=== PATIENT | male | born 1940 | race Caucasian/White ===

== ENCOUNTER 2016-06-15 06:54 | Emergency (ER) | payer OTHER ==
[~2016-06-15] VITALS: Ht 180.3 cm; Wt 81.8 kg
[2016-06-15 08:05] LABS: HEMATOCRIT 36.2 % (38.0-50.0); MCH 29.1 PG (29.0-34.0); MCHC 34.5 G/DL (30.0-36.0); MCV 84.4 FL (86-99); MEAN PLAT.VOLUME 8.2 uM^3 (9.0-12.4); PLATELET COUNT 382 K/uL (156-360); RBC DIS.WIDTH-CV 13.3 % (11.8-14.6); RBC DIS.WIDTH-SD 40.4 % (39-53); RED BLOOD COUNT 4.29 M/uL (4.00-5.50); WHITE BLOOD COUNT 9.3 K/uL (4.1-10.2)
[2016-06-15 08:40] LABS: ALKALINE PHOSPHATASE 64 IU/L (3-129); ANION GAP 11 MEQ/L (2-14); C-REACTIVE PROTEIN 57.2 MG/L (0-10); CHLORIDE 98 MEQ/L (99-109); GFR ESTIMATE (CALCULATED) > 59 mL/min/; GLUCOSE 81 mg/dL (70-99); SAMPLE HEMOLYSIS CHECK 0; SAMPLE ICTERIC CHECK 0; SAMPLE LIPEMIA CHECK 0; SODIUM 132 MEQ/L (136-147); TOTAL BILIRUBIN 0.3 MG/DL (0.0-1.0); UREA NITROGEN (BUN) 4 mg/dL (9-23)
[2016-06-15] MEDS ORDERED: TESSALON PERLE100 MG PO (11:44)
[2016-06-15] MEDS ORDERED: PROVENTIL HFA6.7 GM IH (11:44)
[2016-06-15] MEDS ORDERED: ROBITUSSIN NIG118 ML PO (11:44)
[2016-06-15 12:00] VITALS: BP 118/76
== END 2016-06-15 12:00 | disposition home or self-care (01) ==
LOC: EME 06:54
PROVIDERS: Nurse Practitioner Family
DX: R04.2 Hemoptysis (principal); J85.0 Gangrene and necrosis of lung; R91.8 Other nonspecific abnormal finding of lung field; F17.200 Nicotine dependence, unspecified, uncomplicated
CPT/HCPCS: 71020; 71260; 80053; 85027; 86140; 87116; 87206; 99281; 99284; J7030

== ENCOUNTER → 2016-07-03 | Outpatient (CLI) | payer OTHER ==
[~2016-07-03] VITALS: Ht 180.3 cm; Wt 81.4 kg
[~2016-07-03] MED LIST: ANORO ELLIPTA1 EACH IH; ASPIR 8181 M1 PO; CENTRUM SILVER1 EAC5 PO; FISH OIL 1,0001 EAC7 PO; LEVOFLOXACIN750 MG PO; PREDNISOLONE SO10 MG PO; PROAIR RESPICL90 MCG IH; PROVENTIL HFA6.7 GM IH; ROBITUSSIN NIG118 ML PO; TESSALON PERLE100 MG PO; VITAMIN C1000 MG PO
[2016-07-03 09:48] LABS: INTER. NORMALIZED RATIO 1.2; PROTHROMBIN TIME 11.8 (9.2-11.2); PTT 34.8 (25-32)
== END | disposition home or self-care (01) ==
LOC: OPR 07-02 10:00 → EDSTATUS 09:00
PROVIDERS: Internal Medicine Pulmonary Disease
PROC: 0BBG3ZX Excision of Left Upper Lung Lobe, Percutaneous Approach, Diagnostic (ICD-10-PCS; principal; 2016-07-03)
DX: C34.12 Malignant neoplasm of upper lobe, left bronchus or lung (principal); F17.200 Nicotine dependence, unspecified, uncomplicated; R04.2 Hemoptysis; J44.9 Chronic obstructive pulmonary disease, unspecified
CPT/HCPCS: 71010; 77012; 85610; 85730; 88305; 88341 TC; 88342 TC; J3010

== ENCOUNTER 2016-10-04 11:54 | Emergency (ER) | payer OTHER ==
[~2016-10-04] VITALS: Ht 180.3 cm; Wt 76.7 kg
[~2016-10-04 11:54] MED LIST changes: +AMOX TR-K CLV1 EAC4 PO; +BENZONATATE100 MG PO; +LORTAB 10 MG-3473 ML PO
[2016-10-04] MEDS ORDERED: LEVOFLOXACIN750 MG PO (13:29)
[2016-10-04] MEDS ORDERED: PREDNISONE10 MG PO (13:30)
[2016-10-04] MEDS ORDERED: AMOX TR-K CLV1 EAC4 PO (13:30)
[2016-10-04] MEDS ORDERED: ONDANSETRON ODT8 MG PO (13:31)
[2016-10-04] MEDS ORDERED: ACETAMINOPHN-T1 EACH PO (13:31)
[2016-10-04 14:57] LABS: EOSINOPHIL (%) 2.2 % (0-5); EOSINOPHIL COUNT 0.1 K/uL (0-0.3); HEMATOCRIT 34.8 % (38.0-50.0); IMMATURE GRANULOCYTE (%) 0.3 % (0.0-0.7); INSTRUMENT ABS NEUTROPHIL CT 2.4 K/uL; LYMPHOCYTE COUNT 0.3 K/uL (1.0-2.8); MCH 28.7 PG (29.0-34.0); MCHC 33.6 G/DL (30.0-36.0); MCV 85.3 FL (86-99); MEAN PLAT.VOLUME 9.1 uM^3 (9.0-12.4); MONOCYTE (%) 12.3 % (3-12); MONOCYTE COUNT 0.4 K/uL (0-0.8); NEUTROPHIL (%) 74.8 % (45-76); NEUTROPHIL COUNT 2.4 K/uL (1.8-6.4); RBC DIS.WIDTH-CV 19.9 % (11.8-14.6); RBC DIS.WIDTH-SD 59.8 % (39-53); RED BLOOD COUNT 4.08 M/uL (4.00-5.50); WHITE BLOOD COUNT 3.3 K/uL (4.1-10.2)
[2016-10-04 14:58] LABS: PLATELET COUNT 152 K/uL (156-360)
[2016-10-04 15:11] LABS: CHLORIDE 101 mEq/L (99-109); POTASSIUM 4.1 mEq/L (3.7-5.4); SODIUM 134 mEq/L (136-147)
[2016-10-04 15:14] LABS: GLUCOSE 80 mg/dL (70-99)
[2016-10-04 15:15] LABS: ANION GAP 9 MEQ/L (2-14)
[2016-10-04 15:16] LABS: TOTAL BILIRUBIN 0.5 mg/dL (0.0-1.0)
[2016-10-04 15:17] LABS: ALKALINE PHOSPHATASE 60 IU/L (3-129); GFR ESTIMATE (CALCULATED) > 59 mL/min/
[2016-10-04 15:18] LABS: UREA NITROGEN (BUN) 7 mg/dL (9-23)
[2016-10-04 18:14] LABS: ADD MIUA? NO; BILIRUBIN NEGATIVE; BLOOD NEGATIVE; COLOR STRAW ((YELLOW)); GLUCOSE (STRIP) NEGATIVE; KETONES NEGATIVE; LEUKOCYTES NEGATIVE; NITRITE NEGATIVE; PROTEIN (STRIP) NEGATIVE; SPECIFIC GRAVITY 1.005 (1.000-1.030); UROBILINOGEN 0.2 MG/DL (0.2-1.0)
[2016-10-04 18:36] VITALS: BP 137/90
== END 2016-10-04 18:37 | disposition home or self-care (01) ==
LOC: EME 11:54
PROVIDERS: Emergency Medicine
DX: K40.20 Bilateral inguinal hernia, without obstruction or gangrene, not specified as recurrent (principal); M54.16 Radiculopathy, lumbar region; C34.90 Malignant neoplasm of unspecified part of unspecified bronchus or lung; M79.1 Myalgia; F17.200 Nicotine dependence, unspecified, uncomplicated
CPT/HCPCS: 70450; 72131; 74176; 80053; 81003; 83605; 85025; 99281; 99284; J2270; J7030

== ENCOUNTER 2016-11-10 01:41 | Emergency (ER) | payer OTHER ==
[~2016-11-10] VITALS: Ht 180.3 cm; Wt 81.2 kg
[~2016-11-10 01:41] MED LIST changes: +ACETAMINOPHN-T1 EACH PO; +ONDANSETRON ODT8 MG PO; +PREDNISONE10 MG PO
[2016-11-10 02:02] LABS: HEMATOCRIT 30.6 % (38.0-50.0); MCH 30.9 PG (29.0-34.0); MEAN PLAT.VOLUME 8.3 uM^3 (9.0-12.4); PLATELET COUNT 178 K/uL (156-360); RBC DIS.WIDTH-CV 23.6 % (11.8-14.6); RBC DIS.WIDTH-SD 78.6 % (39-53); RED BLOOD COUNT 3.27 M/uL (4.00-5.50); WHITE BLOOD COUNT 4.6 K/uL (4.1-10.2)
[2016-11-10 02:05] LABS: MCV 93.6 FL (86-99)
[2016-11-10 02:12] LABS: CHLORIDE 101 mEq/L (99-109); POTASSIUM 3.8 mEq/L (3.7-5.4); SODIUM 134 mEq/L (136-147)
[2016-11-10 02:14] LABS: GLUCOSE 87 mg/dL (70-99)
[2016-11-10 02:16] LABS: ANION GAP 13 MEQ/L (2-14)
[2016-11-10 02:17] LABS: SERUM ETHYL ALCOHOL 16 mg/dL
[2016-11-10 02:18] LABS: GFR ESTIMATE (CALCULATED) > 59 mL/min/
[2016-11-10 02:19] LABS: UREA NITROGEN (BUN) 6 mg/dL (9-23)
[2016-11-10 02:51] LABS: INTER. NORMALIZED RATIO 1.2; PROTHROMBIN TIME 13.4 SEC (10.2-12.9)
[2016-11-10 02:54] LABS: PTT 42.8 SEC (25-37)
[2016-11-10 03:16] LABS: TROP-I INTERPRETATION NEGATIVE; TROPONIN-I < 0.01 ng/mL (0.0-0.30)
[2016-11-10 07:10] VITALS: BP 122/72
== END 2016-11-10 07:14 | disposition short-term general hospital (02) ==
LOC: EME → EDBD 01:41 → EME 07:14
PROVIDERS: Emergency Medicine
DX: R04.2 Hemoptysis (principal); R09.02 Hypoxemia; J69.0 Pneumonitis due to inhalation of food and vomit; C34.90 Malignant neoplasm of unspecified part of unspecified bronchus or lung; F17.200 Nicotine dependence, unspecified, uncomplicated; J43.9 Emphysema, unspecified; K44.9 Diaphragmatic hernia without obstruction or gangrene; K57.30 Diverticulosis of large intestine without perforation or abscess without bleeding; Z92.3 Personal history of irradiation
CPT/HCPCS: 71020; 71275; 80048; 84484; 85027; 85379; 85610; 85730; 86900; 86901; 93005; 99281; 99285; G0480; J2543; J7030

== ENCOUNTER 2017-07-30 10:14 | Day surgery (SDC) | payer OTHER ==
[~2017-07-30] VITALS: Ht 182.9 cm; Wt 77.1 kg
[~2017-07-30 10:14] MED LIST changes: +DURAGESIC75 MCG TD; +LORCET HD 10-31 EACH PO; +NEURONTIN300 MG PO; +ONCE DAILY1 EACH PO; +STOOL SOFTENER100 MG PO
== END 2017-07-30 12:06 | disposition home or self-care (01) ==
LOC: PAIN 10:14 → SDC 10:45 → PAIN 12:06
DX: R07.89 Other chest pain (principal); M54.6 Pain in thoracic spine; Z85.118 Personal history of other malignant neoplasm of bronchus and lung
CPT/HCPCS: J1100; J1885; J2250; S0020

== ENCOUNTER 2017-09-19 14:48 | Emergency (ER) | payer OTHER ==
[~2017-09-19] VITALS: Ht 180.3 cm; Wt 102.1 kg
[2017-09-19 15:47] LABS: HEMATOCRIT 39.3 % (38.0-50.0); HEMOGLOBIN 13.6 G/DL (12.5-16.6); MCH 30.5 PG (29.0-34.0); MCHC 34.6 G/DL (30.0-36.0); MCV 88.1 FL (86-99); PLATELET COUNT 371 K/uL (156-360); RBC DIS.WIDTH-CV 13.1 % (11.8-14.6); RBC DIS.WIDTH-SD 41.8 % (39-53); RED BLOOD COUNT 4.46 M/uL (4.00-5.50); WHITE BLOOD COUNT 18.9 K/uL (4.1-10.2)
[2017-09-19 15:53] LABS: INTER. NORMALIZED RATIO 1.3
[2017-09-19 15:55] LABS: CHLORIDE 89 mEq/L (99-109); SODIUM 130 mEq/L (136-147)
[2017-09-19 15:58] LABS: GLUCOSE 105 mg/dL (70-99); TOTAL PROTEIN 7.4 g/dL (6.4-8.3)
[2017-09-19 16:00] LABS: TOTAL BILIRUBIN 0.5 mg/dL (0.0-1.0)
[2017-09-19 16:01] LABS: ALKALINE PHOSPHATASE 98 IU/L (3-129); CREATININE 0.8 mg/dL (0.6-1.3); GFR ESTIMATE (CALCULATED) > 59 mL/min/ (58.99-99999)
[2017-09-19 16:02] LABS: UREA NITROGEN (BUN) 15 mg/dL (9-23)
[2017-09-19 16:03] LABS: AST (GOT) 15 IU/L (2-34)
[2017-09-19 16:04] LABS: ALT (GPT) 17 IU/L (3-49)
[2017-09-19] MEDS ORDERED: NARCAN4 MG NS (18:21)
[2017-09-19] MEDS ORDERED: DILAUDID2 MG PO (18:22)
[2017-09-19 18:30] VITALS: BP 127/68
== END 2017-09-19 18:30 | disposition home or self-care (01) ==
LOC: EME 14:48
PROVIDERS: Emergency Medicine
DX: M54.6 Pain in thoracic spine (principal); R06.02 Shortness of breath; Z85.118 Personal history of other malignant neoplasm of bronchus and lung; F17.200 Nicotine dependence, unspecified, uncomplicated; Z92.21 Personal history of antineoplastic chemotherapy; Z92.3 Personal history of irradiation
CPT/HCPCS: 71275; 80053; 85027; 85610; 85730; 99281; 99285; J1170; J3010; J7030; J7050

== ENCOUNTER 2017-10-29 11:22 | Inpatient (IN) | payer OTHER ==
[~2017-10-29] VITALS: Ht 177.8 cm; Wt 72.5 kg
[~2017-10-29 11:22] MED LIST changes: +DILAUDID2 MG PO; +DURAGESIC100 MCG TD; +NARCAN4 MG NS; +PHILLIPS' LAXA100 MG PO; +ROXICODONE30 MG PO; +SENNA-S LAXATI1 EACH PO
[2017-10-29 12:23] LABS: HEMATOCRIT 30.3 % (38.0-50.0); HEMOGLOBIN 10.6 G/DL (12.5-16.6); RBC DIS.WIDTH-CV 13.1 % (11.8-14.6); RBC DIS.WIDTH-SD 39.7 % (39-53); RED BLOOD COUNT 3.65 M/uL (4.00-5.50); WHITE BLOOD COUNT 19.2 K/uL (4.1-10.2)
[2017-10-29 12:24] LABS: PLATELET COUNT 577 K/uL (156-360)
[2017-10-29 12:33] LABS: ALBUMIN 3.3 g/dL (3.2-4.8); CHLORIDE 93 mEq/L (99-109); POTASSIUM 4.1 mEq/L (3.7-5.4); SODIUM 131 mEq/L (136-147)
[2017-10-29 12:35] LABS: GLUCOSE 112 mg/dL (70-99)
[2017-10-29 12:36] LABS: TOTAL PROTEIN 6.8 g/dL (6.4-8.3)
[2017-10-29 12:37] LABS: TOTAL BILIRUBIN 0.7 mg/dL (0.0-1.0)
[2017-10-29 12:39] LABS: ALKALINE PHOSPHATASE 149 IU/L (3-129); CREATININE 0.7 mg/dL (0.6-1.3); GFR ESTIMATE (CALCULATED) > 59 mL/min/ (58.99-99999)
[2017-10-29 12:40] LABS: UREA NITROGEN (BUN) 11 mg/dL (9-23)
[2017-10-29 12:41] LABS: AST (GOT) 38 IU/L (2-34)
[2017-10-29 12:42] LABS: ALT (GPT) 45 IU/L (3-49)
[2017-10-29 12:43] LABS: TROP-I INTERPRETATION NEGATIVE; TROPONIN-I < 0.01 ng/mL (0.0-0.30)
[2017-10-29 16:11] LABS: APPEARANCE CLEAR ((CLEAR)); BILIRUBIN NEGATIVE; BLOOD NEGATIVE; COLOR YELLOW ((YELLOW)); GLUCOSE (STRIP) NEGATIVE; KETONES 5; LEUKOCYTES NEGATIVE; NITRITE NEGATIVE; PROTEIN (STRIP) NEGATIVE; SPECIFIC GRAVITY 1.013 (1.000-1.030); UCUL ADDED? NO
[2017-10-29 22:05] VITALS: BP 157/90
[2017-10-30 04:00] VITALS: BP 133/65
[2017-10-30 07:33] VITALS: BP 166/94
[2017-10-30] MEDS ORDERED: DURAGESIC100 MCG TD (10:46)
[2017-10-30 11:44] VITALS: BP 139/77
[2017-10-30 15:34] VITALS: BP 153/78
[2017-10-30 19:11] VITALS: BP 146/82
[2017-10-30 22:31] VITALS: BP 153/79
[2017-10-31 08:30] VITALS: BP 138/68
[2017-10-31 11:23] VITALS: BP 164/79
[2017-10-31 15:37] VITALS: BP 149/75
[2017-10-31 18:17] VITALS: BP 165/76
[2017-10-31 19:05] VITALS: BP 143/80
[2017-11-01] VITALS (7 sets, daily range): BP systolic 125–151; BP diastolic 68–78
[2017-11-01 05:33] LABS: HEMATOCRIT 29.4 % (38.0-50.0); HEMOGLOBIN 9.9 G/DL (12.5-16.6); MCH 27.7 PG (29.0-34.0); MCHC 33.7 G/DL (30.0-36.0); MCV 82.4 FL (86-99); PLATELET COUNT 554 K/uL (156-360); RBC DIS.WIDTH-CV 13.2 % (11.8-14.6); RBC DIS.WIDTH-SD 39.7 % (39-53); RED BLOOD COUNT 3.57 M/uL (4.00-5.50); WHITE BLOOD COUNT 21.2 K/uL (4.1-10.2)
[2017-11-01 06:01] LABS: CHLORIDE 98 MEQ/L (99-109); CREATININE 0.4 MG/DL (0.6-1.3); GFR ESTIMATE (CALCULATED) > 59 mL/min/ (58.99-99999); GLUCOSE 93 mg/dL (70-99); MAGNESIUM 1.5 mg/dl (1.3-2.7); SODIUM 134 MEQ/L (136-147); UREA NITROGEN (BUN) 8 mg/dL (9-23)
[2017-11-01 06:17] LABS: POTASSIUM 2.8 MEQ/L (3.7-5.4)
[2017-11-01 08:10] LABS: FOLIC ACID (FOLATE) 16.6 NG/ML (5.0-22.0)
[2017-11-02 05:13] VITALS: BP 146/76
[2017-11-02 07:12] LABS: HEMATOCRIT 28.6 % (38.0-50.0); HEMOGLOBIN 9.8 G/DL (12.5-16.6); MCH 28.2 PG (29.0-34.0); MCHC 34.3 G/DL (30.0-36.0); MCV 82.2 FL (86-99); PLATELET COUNT 537 K/uL (156-360); RBC DIS.WIDTH-CV 13.7 % (11.8-14.6); RBC DIS.WIDTH-SD 40.4 % (39-53); RED BLOOD COUNT 3.48 M/uL (4.00-5.50); WHITE BLOOD COUNT 24.2 K/uL (4.1-10.2)
[2017-11-02 07:21] LABS: CHLORIDE 98 MEQ/L (99-109); CREATININE 0.5 MG/DL (0.6-1.3); GFR ESTIMATE (CALCULATED) > 59 mL/min/ (58.99-99999); GLUCOSE 91 mg/dL (70-99); MAGNESIUM 1.5 mg/dl (1.3-2.7); POTASSIUM 3.3 MEQ/L (3.7-5.4); SODIUM 134 MEQ/L (136-147); UREA NITROGEN (BUN) 8 mg/dL (9-23)
[2017-11-02 07:25] VITALS: BP 133/71
[2017-11-02 17:01] VITALS: BP 163/82
[2017-11-02 19:45] VITALS: BP 124/71
[2017-11-03 00:15] VITALS: BP 110/58
[2017-11-03 04:19] VITALS: BP 139/80
[2017-11-03 07:30] VITALS: BP 136/75
[2017-11-03 11:13] VITALS: BP 132/92
[2017-11-03 15:58] VITALS: BP 134/80
[2017-11-03 19:00] VITALS: BP 136/77
[2017-11-04 04:38] VITALS: BP 144/69
[2017-11-04 07:00] VITALS: BP 147/74
[2017-11-04 09:47] LABS: HEMATOCRIT 30.5 % (38.0-50.0); HEMOGLOBIN 10.3 G/DL (12.5-16.6); MCHC 33.8 G/DL (30.0-36.0); MCV 82.9 FL (86-99); PLATELET COUNT 545 K/uL (156-360); RBC DIS.WIDTH-SD 41.4 % (39-53); RED BLOOD COUNT 3.68 M/uL (4.00-5.50); WHITE BLOOD COUNT 24.5 K/uL (4.1-10.2)
[2017-11-04 10:11] LABS: CHLORIDE 94 MEQ/L (99-109); CREATININE 0.5 MG/DL (0.6-1.3); GFR ESTIMATE (CALCULATED) > 59 mL/min/ (58.99-99999); GLUCOSE 91 mg/dL (70-99); POTASSIUM 3.7 MEQ/L (3.7-5.4); SODIUM 133 MEQ/L (136-147); UREA NITROGEN (BUN) 6 mg/dL (9-23)
[2017-11-04 11:20] VITALS: BP 132/68
[2017-11-04] MEDS ORDERED: MEGESTROL400 MG/10 PO (14:19)
[2017-11-04] MEDS ORDERED: Salonpas 4% Patch TD (14:19)
[2017-11-04 20:11] VITALS: BP 132/76
[2017-11-04 23:55] VITALS: BP 131/70
[2017-11-05 07:08] VITALS: BP 136/76
[2017-11-05] MEDS ORDERED: HYDROMORPHONE HC2 MG PO (09:58)
== END 2017-11-05 12:38 | disposition home health service (06) | DRG 948 ==
LOC: EME 11:22 → EDOF 20:31 → 4SOUTH 20:31 → EDOF 20:31 → ENRESERV 20:33 → 4SOUTH 21:50 → ENRESERV 10-31 14:31 → 4SOUTH 10-31 14:36 → ENRESERV 11-04 10:57 → CANRESERV 11-04 15:56 → 4SOUTH 11-05 12:38
PROVIDERS: Emergency Medicine; Internal Medicine; Physician Assistant
DX: G89.3 Neoplasm related pain (acute) (chronic) (principal); D89.9 Disorder involving the immune mechanism, unspecified; J44.9 Chronic obstructive pulmonary disease, unspecified; C79.51 Secondary malignant neoplasm of bone; E87.1 Hypo-osmolality and hyponatremia; E83.52 Hypercalcemia; E86.0 Dehydration; F17.210 Nicotine dependence, cigarettes, uncomplicated; C34.92 Malignant neoplasm of unspecified part of left bronchus or lung; Z66 Do not resuscitate; Z92.21 Personal history of antineoplastic chemotherapy; Z92.3 Personal history of irradiation; R62.7 Adult failure to thrive; Z51.5 Encounter for palliative care; T40.601A Poisoning by unspecified narcotics, accidental (unintentional), initial encounter; R63.4 Abnormal weight loss; E87.6 Hypokalemia; D47.3 Essential (hemorrhagic) thrombocythemia; D64.9 Anemia, unspecified; Z68.22 Body mass index [BMI] 22.0-22.9, adult
CPT/HCPCS: 70553; 71045; 80048; 80053; 81003; 82607; 82746; 83605; 83735; 84484; 85027; 94640; 94799; 99281; 99285; G0378; J0696; J1170; J1644; J2060; J2270; J2405; J3480; J7030; J7040; J7050

== ENCOUNTER 2017-11-11 12:38 | Inpatient (IN) | payer OTHER ==
[~2017-11-11] VITALS: Ht 188 cm; Wt 86.0 kg
[~2017-11-11 12:38] MED LIST changes: +HYDROMORPHONE HC2 MG PO; +MEGESTROL400 MG/10 PO; +Salonpas 4% Patch TD
[2017-11-11 13:39] LABS: BASOPHIL (%) 0.2 % (0-1); BASOPHIL COUNT 0.1 K/uL (0-0.1); EOSINOPHIL (%) 0.3 % (0-5); EOSINOPHIL COUNT 0.1 K/uL (0-0.3); HEMATOCRIT 26.8 % (38.0-50.0); HEMOGLOBIN 9.3 G/DL (12.5-16.6); LYMPHOCYTE (%) 4.4 % (15-42); LYMPHOCYTE COUNT 1.3 K/uL (1.0-2.8); MCH 28.3 PG (29.0-34.0); MCHC 34.7 G/DL (30.0-36.0); MCV 81.5 FL (86-99); MONOCYTE (%) 6.8 % (3-12); NEUTROPHIL (%) 87.3 % (45-76); NEUTROPHIL COUNT 25.3 K/uL (1.8-6.4); PLATELET COUNT 540 K/uL (156-360); RBC DIS.WIDTH-CV 14.4 % (11.8-14.6); RED BLOOD COUNT 3.29 M/uL (4.00-5.50)
[2017-11-11 13:50] LABS: CHLORIDE 99 mEq/L (99-109); POTASSIUM 2.9 mEq/L (3.7-5.4); SODIUM 141 mEq/L (136-147)
[2017-11-11 13:52] LABS: GLUCOSE 96 mg/dL (70-99); INTER. NORMALIZED RATIO 1.9
[2017-11-11 13:55] LABS: PTT 25.1 SEC (25-37)
[2017-11-11 13:56] LABS: CREATININE 0.8 mg/dL (0.6-1.3); GFR ESTIMATE (CALCULATED) > 59 mL/min/ (58.99-99999)
[2017-11-11 13:57] LABS: UREA NITROGEN (BUN) 15 mg/dL (9-23)
[2017-11-11 14:14] LABS: TROP-I INTERPRETATION NEGATIVE; TROPONIN-I 0.01 ng/mL (0.0-0.30)
[2017-11-11 15:21] LABS: APPEARANCE SL.HAZY ((CLEAR)); BILIRUBIN NEGATIVE; BLOOD NEGATIVE; COLOR YELLOW ((YELLOW)); GLUCOSE (STRIP) NEGATIVE; KETONES 5; LEUKOCYTES NEGATIVE; NITRITE NEGATIVE; PROTEIN (STRIP) 30; UROBILINOGEN 0.2 MG/DL (0.2-1.0)
[2017-11-11 15:38] LABS: BACTERIA RARE /HPF; CALCIUM OXALATE CRYSTALS 1+ /HPF; EPITHELIAL CELLS RARE /HPF; MUCUS TRACE /LPF; RED BLOOD CELLS 0-5 /HPF (0-5); UCUL ADDED? NO; WHITE BLOOD CELLS 0-5 /HPF (0-5)
[2017-11-11 15:41] LABS: AMPHETAMINE NEGATIVE (500 ng/mL); BARBITURATES NEGATIVE (200 ng/mL); BENZODIAZEPINES NEGATIVE (150 ng/mL); BUPRENORPHINE NEGATIVE (10 ng/mL); COCAINE NEGATIVE (150 ng/mL); METHADONE NEGATIVE (200 ng/mL); METHAMPHETAMINE NEGATIVE (500 ng/mL); OPIATES (MORPHINE) NEGATIVE (100 ng/mL); OXYCODONE NEGATIVE (100 ng/mL); PHENCYCLIDINE NEGATIVE (25 ng/mL); PROPOXYPHENE NEGATIVE (300 ng/mL); THC CANNABINOIDS NEGATIVE (50 ng/mL); TRICYCLIC ANTIDEPRESSANTS NEGATIVE (300 ng/mL)
[2017-11-11] MEDS ORDERED: COLACE100 MG PO (16:35)
[2017-11-11] MEDS ORDERED: MEGACE 40 MG40 MG/ML PO (16:35)
[2017-11-11] MEDS ORDERED: NICODERM CQ1 EAC1 TD (16:36)
[2017-11-11] MEDS ORDERED: TYLENOL EXTRA500 MG PO (16:37)
[2017-11-11 18:23] LABS: COMMENTS - BLOOD GASES A+C+; DEVICE ROOM AIR; FI02 21 %; O2 FLOW 0 L/MIN; PCO2 37 mm Hg (35-45); PO2 67 mm Hg (80-100); SITE LEFT RADIAL; TOTAL RESP RATE 18 resp/min; pH 7.52 (7.35-7.45)
[2017-11-11 18:24] LABS: BASE EXCESS 6.9 mEq/L (-3 to +3); BICARBONATE 30.2 mEq/L (22-26); CARBOXY HGB 2.7 % (0-5); METHEMOGLOBIN 1.4 % (0-1.5)
[2017-11-11 18:29] LABS: ALBUMIN 3.4 g/dL (3.2-4.8)
[2017-11-11 18:34] LABS: TOTAL BILIRUBIN 0.7 mg/dL (0.0-1.0)
[2017-11-11 18:35] LABS: ALKALINE PHOSPHATASE 114 IU/L (3-129); SERUM ETHYL ALCOHOL < 10 mg/dL
[2017-11-11 18:37] LABS: AST (GOT) 25 IU/L (2-34); DIRECT BILIRUBIN 0.4 mg/dL (0.0-0.3)
[2017-11-11 18:38] LABS: ALT (GPT) 20 IU/L (3-49)
[2017-11-11 19:33] LABS: THYROTROPIN (TSH) 0.77 MIU/L (0.4-5.5)
[2017-11-11 20:30] VITALS: BP 152/94
[2017-11-11 22:30] VITALS: BP 148/94
[2017-11-12 02:50] VITALS: BP 142/75
[2017-11-12 05:33] LABS: BASOPHIL (%) 0.2 % (0-1); BASOPHIL COUNT 0.1 K/uL (0-0.1); EOSINOPHIL (%) 0.3 % (0-5); EOSINOPHIL COUNT 0.1 K/uL (0-0.3); HEMATOCRIT 25.1 % (38.0-50.0); HEMOGLOBIN 8.4 G/DL (12.5-16.6); IMMATURE GRANULOCYTE (%) 1.2 % (0.0-0.7); LYMPHOCYTE (%) 3.9 % (15-42); MCH 27.6 PG (29.0-34.0); MCHC 33.5 G/DL (30.0-36.0); MCV 82.6 FL (86-99); MONOCYTE (%) 7.1 % (3-12); MONOCYTE COUNT 1.9 K/uL (0-0.8); NEUTROPHIL (%) 87.3 % (45-76); NEUTROPHIL COUNT 23.3 K/uL (1.8-6.4); PLATELET COUNT 502 K/uL (156-360); RBC DIS.WIDTH-CV 14.6 % (11.8-14.6); RBC DIS.WIDTH-SD 42.5 % (39-53); RED BLOOD COUNT 3.04 M/uL (4.00-5.50); WHITE BLOOD COUNT 26.7 K/uL (4.1-10.2)
[2017-11-12 06:49] LABS: ALBUMIN 2.8 G/DL (3.2-4.8); ALKALINE PHOSPHATASE 91 IU/L (3-129); ALT (GPT) 16 IU/L (3-49); AST (GOT) 19 IU/L (2-34); CHLORIDE 104 MEQ/L (99-109); CREATININE 0.7 MG/DL (0.6-1.3); GFR ESTIMATE (CALCULATED) > 59 mL/min/ (58.99-99999); GLUCOSE 93 mg/dL (70-99); POTASSIUM 3.1 MEQ/L (3.7-5.4); SODIUM 142 MEQ/L (136-147); TOTAL BILIRUBIN 0.6 MG/DL (0.0-1.0); TOTAL PROTEIN 6.1 G/DL (6.4-8.3); UREA NITROGEN (BUN) 14 mg/dL (9-23)
[2017-11-12 08:30] VITALS: BP 144/99
[2017-11-12 12:00] VITALS: BP 160/83
[2017-11-12 13:03] LABS: ALBUMIN 2.7 G/DL (3.2-4.8); ALKALINE PHOSPHATASE 103 IU/L (3-129); ALT (GPT) 14 IU/L (3-49); AST (GOT) 17 IU/L (2-34); CHLORIDE 105 MEQ/L (99-109); CREATININE 0.6 MG/DL (0.6-1.3); GFR ESTIMATE (CALCULATED) > 59 mL/min/ (58.99-99999); GLUCOSE 105 mg/dL (70-99); POTASSIUM 3.1 MEQ/L (3.7-5.4); SODIUM 144 MEQ/L (136-147); TOTAL BILIRUBIN 0.6 MG/DL (0.0-1.0); TOTAL PROTEIN 5.3 G/DL (6.4-8.3); UREA NITROGEN (BUN) 15 mg/dL (9-23)
[2017-11-12 15:24] VITALS: BP 164/82
[2017-11-12 18:46] LABS: ALBUMIN 2.8 G/DL (3.2-4.8); ALKALINE PHOSPHATASE 80 IU/L (3-129); ALT (GPT) 15 IU/L (3-49); AST (GOT) 17 IU/L (2-34); CHLORIDE 106 MEQ/L (99-109); CREATININE 0.6 MG/DL (0.6-1.3); GFR ESTIMATE (CALCULATED) > 59 mL/min/ (58.99-99999); GLUCOSE 109 mg/dL (70-99); POTASSIUM 3.5 MEQ/L (3.7-5.4); SODIUM 142 MEQ/L (136-147); TOTAL BILIRUBIN 0.6 MG/DL (0.0-1.0); UREA NITROGEN (BUN) 16 mg/dL (9-23)
[2017-11-12 20:05] VITALS: BP 165/45
[2017-11-13] VITALS: BP 167/86
[2017-11-13 01:14] LABS: CHLORIDE 108 mEq/L (99-109); POTASSIUM 3.4 mEq/L (3.7-5.4); SODIUM 143 mEq/L (136-147)
[2017-11-13 01:16] LABS: GLUCOSE 104 mg/dL (70-99); TOTAL PROTEIN 6.1 g/dL (6.4-8.3)
[2017-11-13 01:18] LABS: TOTAL BILIRUBIN 0.7 mg/dL (0.0-1.0)
[2017-11-13 01:20] LABS: ALKALINE PHOSPHATASE 103 IU/L (3-129); CREATININE 0.7 mg/dL (0.6-1.3); GFR ESTIMATE (CALCULATED) > 59 mL/min/ (58.99-99999)
[2017-11-13 01:21] LABS: UREA NITROGEN (BUN) 16 mg/dL (9-23)
[2017-11-13 01:22] LABS: AST (GOT) 26 IU/L (2-34)
[2017-11-13 01:23] LABS: ALT (GPT) 22 IU/L (3-49)
[2017-11-13 06:14] LABS: ALBUMIN 2.8 G/DL (3.2-4.8); ALT (GPT) 16 IU/L (3-49); AST (GOT) 19 IU/L (2-34); CHLORIDE 105 MEQ/L (99-109); CREATININE 0.6 MG/DL (0.6-1.3); GFR ESTIMATE (CALCULATED) > 59 mL/min/ (58.99-99999); GLUCOSE 91 mg/dL (70-99); MAGNESIUM 1.3 mg/dl (1.3-2.7); POTASSIUM 3.3 MEQ/L (3.7-5.4); SODIUM 141 MEQ/L (136-147); TOTAL BILIRUBIN 0.6 MG/DL (0.0-1.0); TOTAL PROTEIN 5.9 G/DL (6.4-8.3); UREA NITROGEN (BUN) 15 mg/dL (9-23)
[2017-11-13 06:28] LABS: ALKALINE PHOSPHATASE 101 IU/L (3-129)
[2017-11-13 09:00] VITALS: BP 163/92
[2017-11-13 12:52] VITALS: BP 141/81
[2017-11-13 13:34] LABS: ALBUMIN 2.7 G/DL (3.2-4.8); ALKALINE PHOSPHATASE 89 IU/L (3-129); ALT (GPT) 18 IU/L (3-49); AST (GOT) 20 IU/L (2-34); CHLORIDE 106 MEQ/L (99-109); CREATININE 0.5 MG/DL (0.6-1.3); GFR ESTIMATE (CALCULATED) > 59 mL/min/ (58.99-99999); GLUCOSE 92 mg/dL (70-99); POTASSIUM 3.8 MEQ/L (3.7-5.4); SODIUM 142 MEQ/L (136-147); TOTAL BILIRUBIN 0.6 MG/DL (0.0-1.0); TOTAL PROTEIN 5.4 G/DL (6.4-8.3); UREA NITROGEN (BUN) 12 mg/dL (9-23)
[2017-11-13 16:44] VITALS: BP 151/94
[2017-11-13 18:51] LABS: ALBUMIN 2.7 G/DL (3.2-4.8); ALKALINE PHOSPHATASE 106 IU/L (3-129); ALT (GPT) 26 IU/L (3-49); CHLORIDE 104 MEQ/L (99-109); CREATININE 0.5 MG/DL (0.6-1.3); GFR ESTIMATE (CALCULATED) > 59 mL/min/ (58.99-99999); GLUCOSE 87 mg/dL (70-99); POTASSIUM 3.9 MEQ/L (3.7-5.4); SODIUM 141 MEQ/L (136-147); TOTAL BILIRUBIN 0.7 MG/DL (0.0-1.0); TOTAL PROTEIN 5.4 G/DL (6.4-8.3); UREA NITROGEN (BUN) 14 mg/dL (9-23)
[2017-11-13 18:57] LABS: AST (GOT) 31 IU/L (2-34)
[2017-11-13 19:03] VITALS: BP 156/73
[2017-11-13 20:25] LABS: APPEARANCE CLEAR ((CLEAR)); BILIRUBIN NEGATIVE; BLOOD NEGATIVE; COLOR YELLOW ((YELLOW)); GLUCOSE (STRIP) NEGATIVE; KETONES 20; LEUKOCYTES NEGATIVE; NITRITE NEGATIVE; PROTEIN (STRIP) 30; UCUL ADDED? NO; UROBILINOGEN 0.2 MG/DL (0.2-1.0)
[2017-11-14 01:04] LABS: CHLORIDE 107 mEq/L (99-109); POTASSIUM 3.7 mEq/L (3.7-5.4); SODIUM 141 mEq/L (136-147)
[2017-11-14 01:06] LABS: GLUCOSE 90 mg/dL (70-99); TOTAL PROTEIN 5.4 g/dL (6.4-8.3)
[2017-11-14 01:08] LABS: TOTAL BILIRUBIN 0.7 mg/dL (0.0-1.0)
[2017-11-14 01:09] LABS: ALKALINE PHOSPHATASE 111 IU/L (3-129)
[2017-11-14 01:10] LABS: CREATININE 0.6 mg/dL (0.6-1.3); GFR ESTIMATE (CALCULATED) > 59 mL/min/ (58.99-99999)
[2017-11-14 01:11] LABS: UREA NITROGEN (BUN) 14 mg/dL (9-23)
[2017-11-14 01:12] LABS: AST (GOT) 44 IU/L (2-34)
[2017-11-14 01:18] LABS: ALT (GPT) 42 IU/L (3-49)
[2017-11-14 06:16] LABS: ALBUMIN 2.8 G/DL (3.2-4.8); ALKALINE PHOSPHATASE 100 IU/L (3-129); ALT (GPT) 35 IU/L (3-49); AST (GOT) 35 IU/L (2-34); CHLORIDE 105 MEQ/L (99-109); CREATININE 0.5 MG/DL (0.6-1.3); GFR ESTIMATE (CALCULATED) > 59 mL/min/ (58.99-99999); GLUCOSE 93 mg/dL (70-99); POTASSIUM 3.5 MEQ/L (3.7-5.4); SODIUM 140 MEQ/L (136-147); TOTAL BILIRUBIN 0.7 MG/DL (0.0-1.0); TOTAL PROTEIN 5.5 G/DL (6.4-8.3); UREA NITROGEN (BUN) 14 mg/dL (9-23)
[2017-11-14 06:20] LABS: MAGNESIUM 1.5 mg/dl (1.3-2.7)
[2017-11-14 08:00] VITALS: BP 145/77
[2017-11-14 08:53] LABS: BASOPHIL (%) 0.2 % (0-1); BASOPHIL COUNT 0.1 K/uL (0-0.1); EOSINOPHIL (%) 0.3 % (0-5); EOSINOPHIL COUNT 0.1 K/uL (0-0.3); HEMATOCRIT 23.3 % (38.0-50.0); HEMOGLOBIN 7.7 G/DL (12.5-16.6); IMMATURE GRANULOCYTE (%) 0.8 % (0.0-0.7); LYMPHOCYTE COUNT 1.2 K/uL (1.0-2.8); MCH 27.7 PG (29.0-34.0); MCV 83.8 FL (86-99); MONOCYTE (%) 5.8 % (3-12); MONOCYTE COUNT 1.7 K/uL (0-0.8); NEUTROPHIL (%) 88.9 % (45-76); NEUTROPHIL COUNT 25.9 K/uL (1.8-6.4); PLATELET COUNT 460 K/uL (156-360); RBC DIS.WIDTH-CV 15.4 % (11.8-14.6); RED BLOOD COUNT 2.78 M/uL (4.00-5.50); WHITE BLOOD COUNT 29.1 K/uL (4.1-10.2)
[2017-11-14 12:26] LABS: ALBUMIN 2.9 G/DL (3.2-4.8); ALKALINE PHOSPHATASE 108 IU/L (3-129); ALT (GPT) 36 IU/L (3-49); AST (GOT) 33 IU/L (2-34); CHLORIDE 104 MEQ/L (99-109); CREATININE 0.5 MG/DL (0.6-1.3); GFR ESTIMATE (CALCULATED) > 59 mL/min/ (58.99-99999); GLUCOSE 98 mg/dL (70-99); POTASSIUM 3.8 MEQ/L (3.7-5.4); SODIUM 139 MEQ/L (136-147); TOTAL BILIRUBIN 0.6 MG/DL (0.0-1.0); TOTAL PROTEIN 6.2 G/DL (6.4-8.3); UREA NITROGEN (BUN) 14 mg/dL (9-23)
[2017-11-14 14:41] VITALS: BP 133/78
[2017-11-14 19:33] VITALS: BP 162/78
[2017-11-14 21:45] LABS: CHLORIDE 103 MEQ/L (99-109); CREATININE 0.5 MG/DL (0.6-1.3); GFR ESTIMATE (CALCULATED) > 59 mL/min/ (58.99-99999); GLUCOSE 82 mg/dL (70-99); POTASSIUM 3.7 MEQ/L (3.7-5.4); SODIUM 138 MEQ/L (136-147); UREA NITROGEN (BUN) 13 mg/dL (9-23)
[2017-11-14 21:46] LABS: ALBUMIN 2.8 G/DL (3.2-4.8); ALKALINE PHOSPHATASE 108 IU/L (3-129); ALT (GPT) 34 IU/L (3-49); AST (GOT) 30 IU/L (2-34); TOTAL BILIRUBIN 0.7 MG/DL (0.0-1.0); TOTAL PROTEIN 5.4 G/DL (6.4-8.3)
[2017-11-14 23:41] VITALS: BP 132/80
[2017-11-15] VITALS (8 sets, daily range): BP systolic 123–146; BP diastolic 74–82
[2017-11-15 03:12] LABS: STOOL OCCULT BLD 1ST SPECIMEN POSITIVE
[2017-11-15 07:03] LABS: BASOPHIL (%) 0.1 % (0-1); EOSINOPHIL (%) 0.2 % (0-5); EOSINOPHIL COUNT 0.1 K/uL (0-0.3); HEMATOCRIT 22.3 % (38.0-50.0); HEMOGLOBIN 7.6 G/DL (12.5-16.6); IMMATURE GRANULOCYTE (%) 1.2 % (0.0-0.7); LYMPHOCYTE (%) 4.2 % (15-42); LYMPHOCYTE COUNT 1.3 K/uL (1.0-2.8); MCH 27.7 PG (29.0-34.0); MCHC 34.1 G/DL (30.0-36.0); MCV 81.4 FL (86-99); MONOCYTE (%) 5.4 % (3-12); MONOCYTE COUNT 1.6 K/uL (0-0.8); NEUTROPHIL (%) 88.9 % (45-76); NEUTROPHIL COUNT 26.3 K/uL (1.8-6.4); PLATELET COUNT 429 K/uL (156-360); RBC DIS.WIDTH-CV 14.9 % (11.8-14.6); RBC DIS.WIDTH-SD 43.1 % (39-53); RED BLOOD COUNT 2.74 M/uL (4.00-5.50); WHITE BLOOD COUNT 29.5 K/uL (4.1-10.2)
[2017-11-15 07:25] LABS: ALBUMIN 2.7 G/DL (3.2-4.8); ALKALINE PHOSPHATASE 99 IU/L (3-129); ALT (GPT) 35 IU/L (3-49); AST (GOT) 29 IU/L (2-34); CHLORIDE 103 MEQ/L (99-109); CREATININE 0.5 MG/DL (0.6-1.3); GFR ESTIMATE (CALCULATED) > 59 mL/min/ (58.99-99999); GLUCOSE 96 mg/dL (70-99); POTASSIUM 3.4 MEQ/L (3.7-5.4); SODIUM 139 MEQ/L (136-147); TOTAL BILIRUBIN 0.6 MG/DL (0.0-1.0); TOTAL PROTEIN 5.4 G/DL (6.4-8.3); UREA NITROGEN (BUN) 12 mg/dL (9-23)
[2017-11-15 19:06] LABS: HEMATOCRIT 23.2 % (38.0-50.0); HEMOGLOBIN 8.1 G/DL (12.5-16.6); MCV 81.4 FL (86-99)
[2017-11-16 06:48] LABS: HEMATOCRIT 23.5 % (38.0-50.0); MCH 27.8 PG (29.0-34.0); MCV 81.6 FL (86-99); PLATELET COUNT 390 K/uL (156-360); RBC DIS.WIDTH-CV 14.7 % (11.8-14.6); RBC DIS.WIDTH-SD 42.5 % (39-53); RED BLOOD COUNT 2.88 M/uL (4.00-5.50)
[2017-11-16 07:10] LABS: CHLORIDE 100 MEQ/L (99-109); CREATININE 0.5 MG/DL (0.6-1.3); GFR ESTIMATE (CALCULATED) > 59 mL/min/ (58.99-99999); GLUCOSE 109 mg/dL (70-99); POTASSIUM 3.2 MEQ/L (3.7-5.4); SODIUM 136 MEQ/L (136-147); UREA NITROGEN (BUN) 9 mg/dL (9-23)
[2017-11-16 07:13] LABS: MAGNESIUM 1.2 mg/dl (1.3-2.7)
[2017-11-16 07:37] VITALS: BP 137/80
[2017-11-16 15:44] VITALS: BP 132/79
[2017-11-16 23:26] VITALS: BP 130/85
[2017-11-17 06:52] LABS: HEMATOCRIT 23.2 % (38.0-50.0); HEMOGLOBIN 7.8 G/DL (12.5-16.6); MCH 28.1 PG (29.0-34.0); MCHC 33.6 G/DL (30.0-36.0); MCV 83.5 FL (86-99); PLATELET COUNT 393 K/uL (156-360); RBC DIS.WIDTH-CV 15.4 % (11.8-14.6); RBC DIS.WIDTH-SD 44.9 % (39-53); RED BLOOD COUNT 2.78 M/uL (4.00-5.50)
[2017-11-17 07:02] LABS: WHITE BLOOD COUNT 33.1 K/uL (4.1-10.2)
[2017-11-17 07:15] LABS: CHLORIDE 99 MEQ/L (99-109); CREATININE 0.6 MG/DL (0.6-1.3); GFR ESTIMATE (CALCULATED) > 59 mL/min/ (58.99-99999); POTASSIUM 3.3 MEQ/L (3.7-5.4); SODIUM 135 MEQ/L (136-147); UREA NITROGEN (BUN) 9 mg/dL (9-23)
[2017-11-17 07:16] LABS: GLUCOSE 73 mg/dL (70-99)
[2017-11-17 07:20] LABS: ANISOCYTOSIS 1+; BASOPHIL (%) 0.2 % (0-1); BASOPHIL COUNT 0.1 K/uL (0-0.1); EOSINOPHIL (%) 0.3 % (0-5); EOSINOPHIL COUNT 0.1 K/uL (0-0.3); IMMATURE GRANULOCYTE (%) 1.7 % (0.0-0.7); LYMPHOCYTE (%) 3.5 % (15-42); LYMPHOCYTE COUNT 1.2 K/uL (1.0-2.8); MICROCYTOSIS 1+; MONOCYTE (%) 6.4 % (3-12); MONOCYTE COUNT 2.1 K/uL (0-0.8); NEUTROPHIL (%) 87.9 % (45-76); NEUTROPHIL COUNT 29.1 K/uL (1.8-6.4)
[2017-11-17 08:03] VITALS: BP 144/72
[2017-11-17 09:36] LABS: ATYPICAL LYMPHOCYTE 0.9 %; EOSINOPHIL ABS CT 0; LYMPHOCYTES 5.7 % (15.0-45.0); MONOCYTES 2.9 % (0-9.0); SEG.NEUTROPHILS 90.5 % (46.0-76.0)
[2017-11-17 15:25] VITALS: BP 127/68
[2017-11-17 17:05] LABS: APPEARANCE CLOUDY ((CLEAR)); BILIRUBIN NEGATIVE; BLOOD MODERATE; COLOR AMBER ((YELLOW)); GLUCOSE (STRIP) NEGATIVE; KETONES 20; LEUKOCYTES LARGE; NITRITE NEGATIVE; PROTEIN (STRIP) 100; SPECIFIC GRAVITY 1.013 (1.000-1.030)
[2017-11-17 17:43] LABS: BACTERIA 2+ /HPF; EPITHELIAL CELLS 1+ /HPF; MUCUS RARE /LPF; RED BLOOD CELLS 0-5 /HPF (0-5); UCUL ADDED? YES; WHITE BLOOD CELLS 40-50 /HPF (0-5)
[2017-11-18 03:29] VITALS: BP 123/61
[2017-11-18 07:20] VITALS: BP 133/77
[2017-11-18 07:39] LABS: HEMATOCRIT 22.9 % (38.0-50.0); HEMOGLOBIN 7.8 G/DL (12.5-16.6); MCH 28.3 PG (29.0-34.0); MCHC 34.1 G/DL (30.0-36.0); PLATELET COUNT 404 K/uL (156-360); RBC DIS.WIDTH-SD 46.6 % (39-53); RED BLOOD COUNT 2.76 M/uL (4.00-5.50)
[2017-11-18 07:44] LABS: WHITE BLOOD COUNT 37.2 K/uL (4.1-10.2)
[2017-11-18 07:53] LABS: CHLORIDE 98 MEQ/L (99-109); CREATININE 0.5 MG/DL (0.6-1.3); GFR ESTIMATE (CALCULATED) > 59 mL/min/ (58.99-99999); GLUCOSE 58 mg/dL (70-99); POTASSIUM 3.7 MEQ/L (3.7-5.4); SODIUM 134 MEQ/L (136-147); UREA NITROGEN (BUN) 9 mg/dL (9-23)
[2017-11-18 07:54] LABS: MAGNESIUM 1.7 mg/dl (1.3-2.7)
[2017-11-18 08:03] LABS: ABS NEUTROPHIL COUNT 35.6; BAND NEUTROPHILS 1.7 % (0-8.0); EOSINOPHIL ABS CT 0; LYMPHOCYTES 1.7 % (15.0-45.0); MONOCYTES 2.6 % (0-9.0)
[2017-11-18 11:28] VITALS: BP 114/63
[2017-11-18 15:56] VITALS: BP 115/53
[2017-11-18 20:19] VITALS: BP 138/67
[2017-11-18 23:54] VITALS: BP 131/60
[2017-11-19 07:48] VITALS: BP 112/63
[2017-11-19 08:34] LABS: HEMOGLOBIN 7.4 G/DL (12.5-16.6); MCH 27.9 PG (29.0-34.0); MCHC 33.6 G/DL (30.0-36.0); PLATELET COUNT 396 K/uL (156-360); RBC DIS.WIDTH-SD 46.9 % (39-53); RED BLOOD COUNT 2.65 M/uL (4.00-5.50); WHITE BLOOD COUNT 29.2 K/uL (4.1-10.2)
[2017-11-19 09:01] LABS: CHLORIDE 99 MEQ/L (99-109); CREATININE 0.5 MG/DL (0.6-1.3); GFR ESTIMATE (CALCULATED) > 59 mL/min/ (58.99-99999); POTASSIUM 3.9 MEQ/L (3.7-5.4); SODIUM 133 MEQ/L (136-147); UREA NITROGEN (BUN) 7 mg/dL (9-23)
[2017-11-19 09:17] LABS: GLUCOSE 95 mg/dL (70-99)
[2017-11-19 13:04] LABS: HEMATOCRIT 21.1 % (38.0-50.0); HEMOGLOBIN 7.3 G/DL (12.5-16.6); MCV 82.7 FL (86-99)
[2017-11-19 16:26] VITALS: BP 115/59
[2017-11-19 18:06] VITALS: BP 127/76
[2017-11-19 18:28] VITALS: BP 127/60
[2017-11-19 19:53] VITALS: BP 136/76
[2017-11-19 23:48] VITALS: BP 127/65
[2017-11-19 23:52] LABS: HEMATOCRIT 23.7 % (38.0-50.0); HEMOGLOBIN 8.5 G/DL (12.5-16.6); MCV 80.6 FL (86-99)
[2017-11-20 06:14] LABS: CHLORIDE 102 MEQ/L (99-109); CREATININE 0.5 MG/DL (0.6-1.3); GFR ESTIMATE (CALCULATED) > 59 mL/min/ (58.99-99999); GLUCOSE 82 mg/dL (70-99); POTASSIUM 3.3 MEQ/L (3.7-5.4); SODIUM 135 MEQ/L (136-147); UREA NITROGEN (BUN) 7 mg/dL (9-23)
[2017-11-20 06:21] LABS: BASOPHIL (%) 0.2 % (0-1); BASOPHIL COUNT 0.1 K/uL (0-0.1); EOSINOPHIL (%) 0.3 % (0-5); EOSINOPHIL COUNT 0.1 K/uL (0-0.3); HEMOGLOBIN 8.4 G/DL (12.5-16.6); IMMATURE GRANULOCYTE (%) 1.6 % (0.0-0.7); LYMPHOCYTE (%) 3.1 % (15-42); MCH 28.5 PG (29.0-34.0); MCV 81.4 FL (86-99); MONOCYTE (%) 6.3 % (3-12); NEUTROPHIL (%) 88.5 % (45-76); NEUTROPHIL COUNT 27.5 K/uL (1.8-6.4); PLATELET COUNT 372 K/uL (156-360); RBC DIS.WIDTH-CV 15.7 % (11.8-14.6); RBC DIS.WIDTH-SD 45.3 % (39-53); RED BLOOD COUNT 2.95 M/uL (4.00-5.50)
[2017-11-20 07:06] LABS: ANISOCYTOSIS 1+; MACROCYTES 1+; MICROCYTOSIS 1+
[2017-11-20 07:18] VITALS: BP 133/72
[2017-11-20 15:41] VITALS: BP 117/61
[2017-11-20 23:43] VITALS: BP 152/69
[2017-11-21 06:53] LABS: BASOPHIL (%) 0.1 % (0-1); EOSINOPHIL (%) 0.3 % (0-5); EOSINOPHIL COUNT 0.1 K/uL (0-0.3); HEMATOCRIT 23.8 % (38.0-50.0); HEMOGLOBIN 8.2 G/DL (12.5-16.6); LYMPHOCYTE (%) 3.2 % (15-42); LYMPHOCYTE COUNT 0.9 K/uL (1.0-2.8); MCH 28.3 PG (29.0-34.0); MCHC 34.5 G/DL (30.0-36.0); MCV 82.1 FL (86-99); MONOCYTE (%) 6.6 % (3-12); MONOCYTE COUNT 1.8 K/uL (0-0.8); NEUTROPHIL (%) 88.8 % (45-76); NEUTROPHIL COUNT 23.8 K/uL (1.8-6.4); PLATELET COUNT 362 K/uL (156-360); RBC DIS.WIDTH-CV 16.1 % (11.8-14.6); RBC DIS.WIDTH-SD 47.4 % (39-53); WHITE BLOOD COUNT 26.8 K/uL (4.1-10.2)
[2017-11-21] MEDS ORDERED: DULERA 100 MCG/13 GM IH (07:32)
[2017-11-21] MEDS ORDERED: GABAPENTIN100 MG PO (07:32)
[2017-11-21] MEDS ORDERED: PANTOPRAZOLE SO40 MG PO (07:32)
[2017-11-21 07:36] LABS: CHLORIDE 102 MEQ/L (99-109); CREATININE 0.5 MG/DL (0.6-1.3); GFR ESTIMATE (CALCULATED) > 59 mL/min/ (58.99-99999); GLUCOSE 90 mg/dL (70-99); POTASSIUM 3.3 MEQ/L (3.7-5.4); SODIUM 135 MEQ/L (136-147); UREA NITROGEN (BUN) 6 mg/dL (9-23)
[2017-11-21 08:02] VITALS: BP 129/62
[2017-11-21] MEDS ORDERED: POTASSIUM CHLO20 ME2 PO (08:05)
== END 2017-11-21 12:18 | disposition home health service (06) | DRG 71 ==
LOC: EME 12:38 → 4EAST 17:50 → EDOF 17:50 → ENRESERV 17:51 → 4EAST 20:07 → ENRESERV 11-14 10:16 → 3EAST 11-14 14:09
PROVIDERS: Emergency Medicine; Hospitalist; Internal Medicine; Internal Medicine Medical Oncology; Student in an Organized Health Care Education/Training Program
DX: G93.40 Encephalopathy, unspecified (principal); E87.1 Hypo-osmolality and hyponatremia; F05 Delirium due to known physiological condition; C34.12 Malignant neoplasm of upper lobe, left bronchus or lung; C79.51 Secondary malignant neoplasm of bone; C79.89 Secondary malignant neoplasm of other specified sites; Z66 Do not resuscitate; R64 Cachexia; E83.52 Hypercalcemia; E87.6 Hypokalemia; D63.0 Anemia in neoplastic disease; E83.42 Hypomagnesemia; E86.0 Dehydration; G47.33 Obstructive sleep apnea (adult) (pediatric); G89.3 Neoplasm related pain (acute) (chronic); F17.210 Nicotine dependence, cigarettes, uncomplicated; I87.2 Venous insufficiency (chronic) (peripheral); J44.9 Chronic obstructive pulmonary disease, unspecified; M17.0 Bilateral primary osteoarthritis of knee; N14.0 Analgesic nephropathy; T39.395A Adverse effect of other nonsteroidal anti-inflammatory drugs [NSAID], initial encounter; R62.7 Adult failure to thrive; D89.9 Disorder involving the immune mechanism, unspecified; D47.3 Essential (hemorrhagic) thrombocythemia; R19.5 Other fecal abnormalities; I89.0 Lymphedema, not elsewhere classified; Y92.9 Unspecified place or not applicable; Z92.3 Personal history of irradiation; Z68.20 Body mass index [BMI] 20.0-20.9, adult
CPT/HCPCS: 36600; 70450; 71045; 71046; 80048; 80048 91; 80053; 80076; 81003; 82140; 82272; 83735; 84443; 84484; 85007; 85014; 85018; 85025; 85027; 85610; 85730; 86850; 86900; 86901; 86920; 87040; 87086; 92526 GN; 92610 GN; 93005; 94640; 94799; 97530 GP; 99281; 99285; G0480; J0630; J0696; J1170; J1200; J1644; J3475; J3480; J3489; J7030; J7050; P9016; Q0167